=== PATIENT | female | born 1960 | race Caucasian/White ===

== ENCOUNTER 2020-11-28 07:56 | Day surgery (SDC) | payer MEDICARE, OTHER ==
[2020-11-27 11:10] VITALS: BMI 25.7
[2020-11-28 08:45] LABS: Hemoglobin 12.1 g/dL (12.0-16.0)
[2020-11-28] MEDS ORDERED: Lidocaine 1% w/Epinephrine 1:100K 20 ML VIAL ONE (08:59)
[2020-11-28] MEDS ORDERED: Midazolam HCl 2 mg/2 ml Vial ONE (09:09)
[2020-11-28] MEDS ORDERED: Fentanyl 100 MCG/2 ML VIAL ONE ×3 (09:22→10:55)
[2020-11-28] MEDS ORDERED: Ketamine 50 MG/ML (10ML VIAL) ONE (09:22)
[2020-11-28] MEDS ORDERED: methylPREDNISolone Acetate 40 mg/ml Vial ONE (09:37)
[2020-11-28] MEDS ORDERED: Dexamethasone 20 MG/5 ML VIAL ONE (09:53)
[2020-11-28] MEDS ORDERED: Lidocaine 1% PF 5 ML VIAL ONE (09:53)
[2020-11-28] MEDS ORDERED: Ondansetron PF 4 MG/2 ML Vial ONE ×2 (09:53→12:52)
[2020-11-28] MEDS ORDERED: PROPOFOL 200 MG/20 ML VIAL ONE (09:53)
[2020-11-28] MEDS ORDERED: Succinylcholine 200 MG/10 ml SYRINGE FS ONE (09:53)
[2020-11-28] MEDS ORDERED: Hydrocodone-Acetamin 15 ML UDCUP ONE (11:15)
[2020-11-28] MEDS ORDERED: Morphine 2 MG/ML VIAL ONE (11:34)
== END 2020-11-28 13:05 | disposition home or self-care (01) ==
LOC: SDC 07:56
PROVIDERS: ATTEND Otolaryngology Plastic Surgery within the Head & Neck
PROC: 0CB70ZZ Excision of Tongue, Open Approach (ICD-10-PCS; principal; 2020-11-28)
DX: K14.0 Glossitis (principal); I42.8 Other cardiomyopathies; G47.30 Sleep apnea, unspecified; M79.7 Fibromyalgia; Z79.899 Other long term (current) drug therapy; Z88.1 Allergy status to other antibiotic agents; Z88.2 Allergy status to sulfonamides; Z88.5 Allergy status to narcotic agent; Z88.8 Allergy status to other drugs, medicaments and biological substances
CPT/HCPCS: 85014; 85018; 88305; 93005; J2270; 36415; 93010; J1100; J2250; J2405; J2704; J2920; J3010